=== PATIENT | female | born 1955 | race Caucasian/White ===

== ENCOUNTER 2018-05-29 16:34 | Outpatient (CLI) | payer SELFPAY ==
[2018-05-29 17:40] LABS: eGFR (Non-African) > 60
== END 2018-05-29 16:36 ==
LOC: LAB 16:34
PROVIDERS: ATTEND Internal Medicine Rheumatology
DX: R53.83 Other fatigue (principal); M05.70 Rheumatoid arthritis with rheumatoid factor of unspecified site without organ or systems involvement
CPT/HCPCS: 36415; 80048; 82306; 84436; 84443